=== PATIENT | male | born 1990 | race Caucasian/White ===

== ENCOUNTER 2017-10-13 19:09 | Emergency (ER) | payer BC ==
[~2017-10-13 19:09] MED LIST: ISOVUE-370 76%-LOCM 1 ML ONE
[2017-10-13 19:37] LABS: #Basophils 0.1 thou/uL (0.0-0.2); #Eosinphils 0.1 thou/uL (0.0-0.7); #Lymphocytes 2.2 thou/uL (1.20-3.40); #Monocytes 0.7 thou/uL (0.11-0.59); #Neutrophils 10.3 thou/uL (1.40-6.50); %Basophils 0.5 % (0.0-1.0); %Eosinophils 0.5 % (0.0-10.0); %Lymphocytes 16.7 % (21.0-51.0); %Monocytes 5.1 % (0.0-10.0); %Neutrophils 77.2 % (42.0-75.0); Hemoglobin 15.9 g/dL (14.0-18.0); Mean Corpuscular HGB CONC 35.4 g/dL (32.0-36.0); Mean Corpuscular Hemoglobin 31.2 pg (27.0-31.0); Mean Corpuscular Volume 88.1 fl (80.0-94.0); Mean Platelet Volume 6.8 fL (7.4-10.4); Platelet Count 330 thou/uL (130-400); RBC Distribution Width 11.8 % (11.5-14.5); Red Blood Cell (RBC) Count 5.11 mill/uL (4.70-6.10); White Blood Cell (WBC) Count 13.4 thou/uL (4.8-10.8)
[2017-10-13 20:00] LABS: ALT (SGPT) 19 U/L (8-55); AST (SGOT) 16 U/L (5-34); Albumin 4.6 g/dL (3.5-5.0); Alkaline Phosphatase 113 U/L (40-150); Anion Gap 12 mmol/L (10-20); BUN (Urea Nitrogen) 12 mg/dL (8.9-20.6); Bilirubin, Total 0.3 mg/dL (0.2-1.2); Calc. Creatinine Clearance 0 mL/min (70-130); Calcium 9.7 mg/dL (7.8-10.44); Carbon Dioxide 23 mmol/L (22-29); Chloride 107 mmol/L (98-107); Estimated GFR-MDRD 87; Globulin 3.3 g/dL (2.4-3.5); Glucose 117 mg/dL (70-105); Lipase 12 U/L (8-78); Potassium 3.8 mmol/L (3.5-5.1); Protein, Total 7.9 g/dL (6.0-8.3); Sodium 138 mmol/L (136-145)
[2017-10-13 20:26] LABS: Bilirubin Negative (Negative); Blood, Urine Large (Negative); Clarity CLEAR (Clear); Glucose, Urine (Dipstick) Negative (Negative); Leukocyte Negative (Negative); Nitrite Negative (Negative); Protein, Urine (Dipstick) Trace mg/dL (Neg-Trace); Specific Gravity, Urine 1.045 (1.002-1.036); Urobilinogen 0.2 mg/dL (0.2-1.0)
[2017-10-13 20:28] LABS: Bacteria/HPF None Seen HPF (None Seen); Hyaline Casts/LPF 4-6 HYALINE CAST LPF (0-3 Hyaline); Pathc Cast-AUWi Flag 0.54 (0-2.49); Squamous Epithelial 0-3 HPF (0-3)
--- NOTE | 2017-10-13 21:06 | CT ---
CT ABDOMEN AND PELVIS WITH IV CONTRAST: Date: 10-13-17 History: Sudden right lower quadrant abdominal pain with associated nausea. Comparison: None available. 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 There is mild right sided hydronephrosis with hydroureter. There is a 7 mm x 3 mm calculus seen in the distal right ureter just proximal to the right UVJ. There is mi nimal periureteral stranding seen at the base of the urinary bladder. A nonobstructing calculus is present within the right aspect of the horseshoe shaped kidney measurin g approximately 8 mm. The left renal collecting system and ureter demonstrate no dilatation and no le ft renal or ureteral calculus is seen. A tiny subcentimeter too small to characterize hypodense lesio n is seen in the left aspect of the kidney. The lung bases, liver, spleen, pancreas, bilateral adrenal glands, abdominal aorta and urinary bladde r demonstrate a normal CT appearance. The appendix is visualized and normal in caliber. No free fluid, fluid collection, or lymphadenopathy is seen in the abdomen or pelvis. IMPRESSION: 1. Partially obstructing distal right ureteral calculus measuring 7 mm x 3 mm. 2. Horseshoe shaped kidney with nonobstructing calculus. 3. Tiny too small to characterize hypodense lesion in the left kidney with 1.4 cm low density lesion in the right aspect of the kidney, probably related to a small renal cyst versus mildly dilated calyx . 3. No CT evidence of appendicitis. POS: [facility]
[2017-10-13] MEDS ORDERED: Ketorolac Tromethamine 30 MG/ML VIAL ONE (22:13)
== END 2017-10-13 22:46 | disposition home or self-care (01) ==
LOC: ERS 19:09
DX: N13.2 Hydronephrosis with renal and ureteral calculous obstruction (principal); F90.9 Attention-deficit hyperactivity disorder, unspecified type
CPT/HCPCS: 36415; 74177; 80053; 81003; 81015; 83690; 85025; 96361; 96374; J1885